=== PATIENT | female | born 1950 | race Caucasian/White ===

== ENCOUNTER 2023-10-23 16:00 | Emergency (ER) | payer OTHER, MEDICAID ==
[~2023-10-23] VITALS: Ht 154.9 cm; Wt 78.0 kg
[2023-10-23] MEDS ORDERED: AMLO10TA59 PO (16:12)
[2023-10-23] MEDS ORDERED: CLON0.1T MT (16:12)
[2023-10-23] MEDS ORDERED: CHLO50TA PO (16:12)
[2023-10-23] MEDS ORDERED: LISI40TA13 PO (16:12)
[2023-10-23] MEDS ORDERED: GLIP10TA11 PO (16:12)
[2023-10-23] MEDS ORDERED: LEVO75TA7 PO (16:12)
[2023-10-23] MEDS ORDERED: SPIR25TA (16:12)
[2023-10-23] MEDS ORDERED: METF-440 PO (16:12)
[2023-10-23 16:33] LABS: CALCIUM 9.6 mg/dL (8.5-10.1); CARBON DIOXIDE 13 mmol/L (21-32); CHLORIDE 114 mmol/L (98-107); CREATININE 2.1 mg/dL (0.6-1.3); GLUCOSE 158 mg/dL (74-106); SODIUM SERUM 141 mmol/L (136-145); UREA NITROGEN, BLOOD 61 mg/dL (7-18)
[2023-10-23 16:42] LABS: BASOPHILS # (AUTO) 0.1 K/UL (0.0-0.2); BASOPHILS % (AUTO) 0.9 % (0.0-2.0); DIFFERENTIAL COMMENT 1; EOSINOPHILS # (AUTO) 0.2 K/uL (0.0-0.7); EOSINOPHILS % (AUTO) 3.7 % (0.0-7.0); HEMATOCRIT 28.9 % (31.2-41.9); HEMOGLOBIN 9.5 g/dL (10.9-14.3); LYMPHOCYTES # (AUTO) 1.7 K/uL (0.8-4.8); LYMPHOCYTES % (AUTO) 28.9 % (20.5-51.5); MEAN CORPUSCULAR HEMOGLOBIN 29.2 uug (24.7-32.8); MEAN CORPUSCULAR HGB CONC 33 g/dL (32.3-35.6); MONOCYTES # (AUTO) 0.4 K/uL (0.1-1.30); MONOCYTES % (AUTO) 7.1 % (0.0-11.0); NEUTROPHILS # (AUTO) 3.4 K/uL (1.8-8.9); NEUTROPHILS % (AUTO) 59.4 % (38.5-71.5); PLATELET COUNT (AUTO) 206 K/uL (179-408); RED BLOOD CELL COUNT(AUTO) 3.25 MIL/uL (3.63-4.92); RED CELL DISTRIBUTION WIDTH 14.5 % (12.3-17.7); WHITE BLOOD COUNT (AUTO) 5.7 K/uL (3.8-11.8)
[2023-10-23 16:57] LABS: POTASSIUM 6.6 mmol/L (3.5-5.1)
[2023-10-23] MEDS ORDERED: SODIUM POLYSTYRENE SULFONATE 15 G/60 ML LIQUID UDC ONE (17:03)
[2023-10-23] MEDS: SODIUM POLYSTYRENE SULFONATE 15 G/60 ML LIQUID UDC PO ONE (17:10)
[2023-10-23] MEDS ORDERED: OXYCODONE/APAP 5-325 MG TABLET ONE (17:29)
[2023-10-23] MEDS: OXYCODONE/APAP 5-325 MG TABLET PO ONE (17:30)
[2023-10-23] MEDS ORDERED: SODI15OR6 PO (18:12)
[2023-10-23 18:27] VITALS: BP 122/80; TEMP 98; O2SAT 99
[2023-10-24] MEDS ORDERED: SODI15OR6 PO (19:13)
== END 2023-10-23 18:37 | disposition home or self-care (01) ==
LOC: ER 16:03
DX: E87.5 Hyperkalemia (principal); E11.9 Type 2 diabetes mellitus without complications; Z79.899 Other long term (current) drug therapy; Z88.1 Allergy status to other antibiotic agents
CPT/HCPCS: 36415; 85025; 93005; A4606; A4663